=== PATIENT | male | born 1965 | race Caucasian/White ===

== ENCOUNTER 2021-03-01 03:16 | Outpatient (CLI) | payer MEDICAID, SELFPAY ==
--- NOTE | 2021-03-01 09:09 | DI.RAD_ITS ---
Exam(s) XR FOOT RT LIMITED EXAM: XR FOOT RT LIMITED CLINICAL HISTORY: ARTHRITIS, M13.80 TECHNIQUE: COMPARISON: No exams were available for comparison FINDINGS: Two views were obtained. There are minimal enthesophytes at the sites of attachment of plantar fasci a and Achilles tendon on the calcaneus. Bony alignment appears within normal limits. The joints eve ear well maintained. No other abnormality seen. IMPRESSION: RADIATION DOSE DELIVERED: Total DLP
--- NOTE | 2021-03-01 09:10 | DI.RAD_ITS ---
Exam(s) XR FOOT LT LIMITED EXAM: XR FOOT LT LIMITED CLINICAL HISTORY: ARTHRITIS, M13.80 TECHNIQUE: COMPARISON: CR XR FOOT RT LIMITED from 03/01/2021 FINDINGS: Two views were obtained. There are small enthesophytes at the sites of attachment of plantar fascia and Achilles tendon on the calcaneus. Bony alignment appears within normal limits. No other bony ab normality seen. IMPRESSION: RADIATION DOSE DELIVERED: Total DLP
== END 2021-03-01 03:36 ==
PROVIDERS: Visit Provider Orthopaedic Surgery
DX: M13.871 Other specified arthritis, right ankle and foot (principal); M13.872 Other specified arthritis, left ankle and foot
CPT/HCPCS: 73620